=== PATIENT | female | born 1970 | race Caucasian/White ===

== ENCOUNTER 2024-09-29 14:00 | Outpatient (AMB) | payer OTHER, SELFPAY ==
--- NOTE | 2024-09-29 14:04 | MHC.PC.OV ---
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 Intake Note: establish care Is last menstrual period known: No Post menopausal: Yes Patient : No Allergies No Known Allergies Allergy (Verified 09/29/24 14:04) Tobacco use date assessed: 09/29/24 Dental Screening Dental Screen Date: 09/29/24 Did you have a dental visit in the last 12 months?: Yes Did you have a dental problem in the last 6 months where you did not have access to dental care?: No HPI HPI Comments History of Present Illness Details This is a 53-year-old female with a past medical history of eye globe prosthesis, depression, vulvodynia and lumbar spondylosis presenting to [facility]. She transferred from [facility] care. She endorses fatigue for about a year. It is progressively worse over the past year. She has been on fluvoxamine and gabapentin and chronically. The dose of fluvoxamine has been decreased to 100 mg daily though it is written for twice a day. She is not appreciate any difference. She does not think depression is making her fatigued but rather the opposite. She did start compounded semaglutide over the past year, and she lost weight. She is aware this medication can make fatigue worse. She endorses non restorative sleep. If she sleeps 8 or 12 hours she does not feel she is well rested. She also snores and wakes herself up snoring. She has not had a sleep study that was suggested in the past. Semaglutide is prescribed by a nurse practitioner at [facility]. Hypertension-taking amlodipine 5 mg daily. She was able to stop this medication in the past. Her blood pressure is 110/66. Vulvodynia is treated with gabapentin 600 mg daily. Right knee-has meniscal surgery at [facility] last year and had a gel injection in July for residual arthritis. She has had chronic issues with her lower back due to degenerative changes. She was seen at the arthritis treatment center. She had injections and physical therapy. Her last imaging was more than a year ago. She endorses chronic pain in the middle of the lower back. It does not radiate. There is no loss of bowel or bladder control or numbness or tingling in her lower extremities. The patient says she is up-to-date with routine screenings including mammogram, colonoscopy and routine gynecological exam. ROS: Constitutional: No unexplained weight loss, fever, chills or night sweats. Eyes: No vision changes, blurry vision, double vision, eye pain, eye redness, eye discharge. ENT: No hearing loss, chronic congestion, bloody noses, ear pain or sore throat. Respiratory: No shortness of breath, cough or sputum production. Cardiovascular: No chest pain, chest pressure or chest discomfort. No palpitations or pedal edema. Gastrointestinal: No anorexia, nausea, vomiting or diarrhea. No abdominal pain or blood in stool. Genitourinary: No dysuria, hematuria, urinary frequency. Neurologic: No headache, dizziness, syncope, unilateral weakness, ataxia, numbness or tingling in the extremities. Musculoskeletal: See HPI. Hematologic/Lymphatics: No bleeding or bruising. No painful lymph nodes. Skin: No rash or itching. Endocrine: No cold or heat intolerance. No polyuria or polydipsia. Psychiatric: No SI/HI. Physical exam: Constitutional: Alert, in no distress. Ear, Nose and Throat: Canals clear. TMs normal. Normal nasal mucosa. No nasal discharge. No oral lesions. Neck: Supple, Full range of motion. No lymphadenopathy. No palpable thyroid masses. Respiratory: Clear to auscultation. Cardiovascular: S1 S2 regular. No murmurs. Gastrointestinal: Abdomen soft, non-tender, non-distended. Normal bowel sounds. No palpable masses. Genitourinary: No costovertebral angle tenderness. Neurologic: No focal neurological deficits. Symmetric patellar reflexes. Moves all extremities spontaneously. Sensation intact bilaterally. Skin: No rashes Musculoskeletal: Midline spinal tenderness around L5-S1 level. Full range of motion but pain with flexion and extension. Negative straight leg raises bilaterally. Lower extremity strength 5/5 bilaterally. Extremities: Warm and well perfused. No clubbing, cyanosis or edema. 3+ peripheral pulses bilaterally. Psychiatric: Normal mood and affect [facility] Medical History (Updated 09/29/24 @ 14:45 by JOSEPH Fraser) Chronic low back pain Fatigue Non-restorative sleep Essential hypertension Vulvodynia Depression High blood pressure Surgical History (Updated 09/29/24 @ 14:12 by Umang Fleming CMA) H/O lateral meniscus repair of right knee Family History (Updated 09/29/24 @ 14:11 by Umang Fleming CMA) Mother FH: heart attack Father Lung cancer Sister FH: heart attack Social History (Updated 09/29/24 @ 14:12 by Umang Fleming CMA) Housing: House Patient Tobacco Use Status: Never used Tobacco e-Cigarette/Vaping Use: Never Used Second Hand Smoke Exposure: No Use of substances other than those prescribed or required for medical reasons: No Patient : No service: No Current occupational status: employed 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 1. Little interest or pleasure in doing things: not at all 2. Feeling down, depressed, or hopeless: not at all 3. Trouble falling or staying asleep, or sleeping too much: several days 4. Feeling tired or having little energy: nearly every day 5. Poor appetite or overeating: not at all 6. Feeling bad about yourself - or that you are a failure or have let yourself or your family down: not at all 7. Trouble concentrating on things, such as reading the newspaper or watching television: not at all 8. Moving or speaking so slowly that other people could have noticed. Or the opposite - being so fidgety or restless that you have been moving around a lot more than usual: not at all 9. Thoughts that you would be better off or of hurting yourself in some way: not at all Total score: 4 Depression Screening Interpretation: Negative Depression Screening Done: Yes 24941 - PHQ-9 Billing: Yes Source: Developed by Drs. Jesus Buckley, Zoila Conley, Michael Blake and colleagues, with an educational marta from [employer]. Thrive Questionnaire Date Thrive assessed: 09/29/24 I am a: Patient What is your living situation today?: I have a steady place to live Within the past 12 months, did the food you bought not last and you didn't have the money to get more?: Never true Within the past 12 months, did you worry whether your food would run out before you got money to buy more?: Never true Do you have trouble paying for medicines?: No Do you have trouble getting transportation to medical appointments?: No Do you have trouble paying your heating and electricity bill?: No Do you have trouble taking care of your child, family member or friend?: No Do you have trouble with day-to-day activities such as bathing, preparing meals, shopping, managing finances, etc.?: No Are you currently unemployed and looking for a job?: No Are you interested in more education?: No Please select the resources that you would like help with: None Currently or been in a relationship where the following occur: No concerns reported THRIVE Score: 0 AUDIT C Alcohol Use Questionnaire (AUDIT-C) 1. How often do you have a drink containing alcohol?: 2-3 times a week 2. How many drinks containing alcohol do you have on a typical day when you are drinking?: 3 or 4 3. How often do you have six or more drinks on one occasion?: Never Total Score: 4 FRED-7 AMB Questionnaire FRED-7 Date FRED - 7 assessed: 09/29/24 Feeling nervous, anxious, or on edge: 0 = Not at all Not being able to stop or control worryin = Not at all Worrying too much about different things: 0 = Not at all Trouble relaxin = Not at all Being so restless that it is hard to sit still: 0 = Not at all Becoming easily annoyed or irritable: 1 = Several days Feeling afraid as if something awful might happen: 0 = Not at all Total FRED-7 score (0-4 normal; 5-9 mild; 10-14 moderate; 15-21 severe): 1 Source: Developed by Drs. Jesus Buckley, Zoila Conley, Michael Blake and colleagues, with an educational marta from [employer]. Physical exam (Primary Care) Vital Signs: Last Vital Signs Temp 99.4 F 09/29/24 14:13 Pulse 96 09/29/24 14:13 Resp 14 09/29/24 14:13 BP 110/66 09/29/24 14:13 Pulse Ox 96 09/29/24 14:13 Oxygen Delivery Method Room Air 09/29/24 14:13 BMI result Body Mass Index 26.4 Tobacco/Smoking Status: Tobacco use Status Tobacco use date assessed 09/29/24 09/29/24 14:16 Patient Tobacco Use Status Never used Tobacco 09/29/24 14:16 e-Cigarette/Vaping Use Never Used 09/29/24 14:16 PHQ-9: PHQ-9 Score PHQ-9: Total score 4 09/29/24 14:16 Depression Screening Interpretation: Negative Thrive Assessment: Date of Thrive Assessment Date Thrive assessed 09/29/24 09/29/24 14:16 Currently or been in a relationship where the following occur: No concerns reported Office Procedures EKG Details: EKG shows normal sinus rhythm, nonishemic, no evidence of heart block, ventricular rate 93 beats per minute [id number], Complete Coding Level of Care Code Est Pt Level 5 (78154) Complex EM visit Add On G2211 Diagnoses Essential hypertension I10 Depression F32.A Vulvodynia N94.819 Non-restorative sleep G47.8 Fatigue R53.83 Chronic low back pain M54.50; G89.29 CPT Codes EKG - CPT: 49534-[id number], Complete ([id number]) Additional Codes PHQ-9 - 09253 - PHQ-9 Billing: Yes ([id number]) Time Spent (min) 55 Comment Direct patient care, chart review, completing documentation Assessment & Plan Assessment & Plan (1) Essential hypertension: Code(s): I10 - Essential (primary) hypertension Category: Medical Plan: Reduce amlodipine to 2.5 mg daily. Recommended low-sodium diet and avoidance of caffeine. (2) Depression: Code(s): F32.A - Depression, unspecified Category: Medical Plan: She will continue fluvoxamine 100 mg daily. We discussed potentially switching this to Cymbalta due to chronic pain. It is deferred for now. (3) Vulvodynia: Code(s): N94.819 - Vulvodynia, unspecified Category: Medical Plan: Continue gabapentin. (4) Non-restorative sleep: Code(s): G47.8 - Other sleep disorders Category: Medical (5) Fatigue: Code(s): R53.83 - Other fatigue Category: Medical Plan: We discussed that fatigue may be multifactorial. Several of the medication she takes have fatigue listed as a side effect. I recommended a trial of stopping or decreasing semaglutide. She will talk about this with the prescribing practitioner. We will decrease amlodipine to 2.5 mg daily since her blood pressure is very well-controlled. Non restorative sleep and snoring may be indicative of sleep apnea. Home sleep study ordered. Check labs for fatigue. See detailed list below. Consider MRI of the brain if this workup is nondiagnostic to evaluate for potential MS. (6) Chronic low back pain: Code(s): M54.50 - Low back pain, unspecified; G89.29 - Other chronic pain Category: Medical Plan: Defer increasing gabapentin as this medication can be more fatiguing. Check x-ray, MRI and refer back to physiatry. Plan Follow up in 6 weeks for fatigue and hypertension. Orders: Orders RT home sleep study Today F32.A - Depression, unspecified, G47.8 - Other sleep disorders, I10 - Essential (primary) hypertension UA w Microscopic Today F32.A - Depression, unspecified, G47.8 - Other sleep disorders, I10 - Essential (primary) hypertension, R39.9 - Unspecified symptoms and signs involving the genitourinary system TSH reflex Free T4 Today F32.A - Depression, unspecified, G47.8 - Other sleep disorders, I10 - Essential (primary) hypertension Cortisol Random Today F32.A - Depression, unspecified, G47.8 - Other sleep disorders, I10 - Essential (primary) hypertension Complete Blood Count Auto Diff Today F32.A - Depression, unspecified, G47.8 - Other sleep disorders, I10 - Essential (primary) hypertension MR lumbar spine wo con Today G89.29 - Other chronic pain, M54.50 - Low back pain, unspecified Urine Culture Today F32.A - Depression, unspecified, G47.8 - Other sleep disorders, I10 - Essential (primary) hypertension Vitamin B12 and Folate Today F32.A - Depression, unspecified, G47.8 - Other sleep disorders, I10 - Essential (primary) hypertension Magnesium Today F32.A - Depression, unspecified, G47.8 - Other sleep disorders, I10 - Essential (primary) hypertension Lyme IgG/IgM w/reflex to WB Today F32.A - Depression, unspecified, G47.8 - Other sleep disorders, I10 - Essential (primary) hypertension Vitamin D 1,25 dihydroxy Today F32.A - Depression, unspecified, G47.8 - Other sleep disorders, I10 - Essential (primary) hypertension Comprehensive Met. Panel Today F32.A - Depression, unspecified, G47.8 - Other sleep disorders, I10 - Essential (primary) hypertension Zinc Today G47.8 - Other sleep disorders AMB EKG-In Office Today R53.83 - Other fatigue XR lumbar spine 2-3V Today G89.29 - Other chronic pain, M54.50 - Low back pain, unspecified Erythrocyte Sedimentation Rate Today R53.83 - Other fatigue IRON PROFILE Today R53.83 - Other fatigue Referrals Physiatry Referral G89.29 - Other chronic pain, M54.50 - Low back pain, unspecified Medications: New fluvoxamine 100 mg PO BID 180 tabs 1RF amlodipine 2.5 mg PO DAILY 90 tabs 1RF
[2024-09-29 14:13] VITALS: BP 110/66; PULSE 96; RESP 14; TEMP 37.4; O2SAT 96; BMI 26.4
== END 2024-09-29 15:05 | disposition home or self-care (01) ==
PROVIDERS: PCP Physician Assistant Medical; Visit Provider Physician Assistant Medical
DX: I10 Essential (primary) hypertension (principal); F32.A Depression, unspecified; N94.819 Vulvodynia, unspecified; G47.8 Other sleep disorders; R53.83 Other fatigue; M54.50 Low back pain, unspecified; G89.29 Other chronic pain

== ENCOUNTER → 2024-09-29 14:00 | Outpatient (BNVA) | payer OTHER, SELFPAY | PROVIDERS: PCP Physician Assistant Medical; Visit Provider Physician Assistant Medical | DX: I10 Essential (primary) hypertension (principal); F32.A Depression, unspecified; N94.819 Vulvodynia, unspecified; G47.8 Other sleep disorders; R53.83 Other fatigue; G89.29 Other chronic pain; M54.50 Low back pain, unspecified; Z79.899 Other long term (current) drug therapy | CPT/HCPCS: 93005; 96127 ==

== ENCOUNTER 2024-09-29 15:12 | Outpatient (REF) | payer OTHER, SELFPAY ==
[2024-09-29 17:50] LABS: MANUAL DIFF FLAG NO
[2024-09-29 17:55] LABS: Basophils Percent Auto 0.8 % (0-2); Eosinophils Absolute Auto 0.1 X10*3/uL (0.0-0.4); Eosinophils Percent Auto 2.1 % (0-4); Imm Gran Abs Auto 0.01 X10*3/uL (0.00-0.03); Imm Gran Pct Auto 0.3 % (0.0-0.4); Lymphocytes Percent Auto 25.9 % (20-40); Mean Corpuscular Hemoglobin 31.6 pg (27.0-33.0); Mean Corpuscular Volume 90.3 fL (80.0-98.0); Mean Platelet Volume 8.3 fL (9.4-12.3); Monocytes Absolute Auto 0.5 X10*3/uL (0.1-1.2); Monocytes Percent Auto 13.4 % (2-11); Neutrophils Absolute Auto 2.2 x10*3/uL (2.0-8.3); Neutrophils Percent Auto 57.5 % (45-73); Platelet Count 251 X10*3/uL (160-400); Red Blood Count 4.43 X10*6/uL (4.20-5.50); Red Cell Distribution Width 12.4 % (11.0-16.0); White Blood Count 3.7 X10*3/uL (4.8-10.8)
[2024-09-29 18:07] LABS: Appearance Urine Cloudy; Color Urine Yellow; Glucose Urine UA Negative (Negative); Leukocyte Esterase Urine Negative (Negative); Nitrite Urine Negative (Negative); PH 5.5 (5.0-9.0); Specific Gravity - Urine >= 1.030 (1.005-1.025); UMIC TRIGGER UA YES; Urine Blood Trace (Negative); Urine Ketones Trace mg/dL (Negative); Urine Protein Trace mg/dL (Neg-Trace)
[2024-09-29 18:14] LABS: Alanine Aminotransferase 14 U/L (0-31); Albumin Level 4.4 g/dL (3.5-5.0); Alkaline Phosphatase 73 U/L (39-117); Anion Gap 10 (12-20); Aspartate Amino Transferase 22 U/L (5-31); Bilirubin Total 0.2 mg/dL (0.0-1.0); Blood Urea Nitrogen 22 mg/dL (9-16); Calcium 9.6 mg/dL (8.4-10.2); Carbon Dioxide 24 mmol/L (22-29); Chloride 108 mmol/L (96-108); Estimated Glomerular Filt Rate > 60; Glucose Random 98 mg/dL (60-115); Iron 19 mcg/dL (30-160); Magnesium 2.1 mg/dL (1.6-2.6); Percent Iron Saturation 7 % (15-50); Potassium 4.3 mmol/L (3.3-5.1); Sodium 138 mmol/L (135-145); Total Iron Binding Capacity 257 mcg/dL (228-428); Total Protein 7.8 g/dL (6.5-8.0); Unsaturated Iron Binding 238 ug/dL
[2024-09-29 18:24] LABS: Cortisol Random 7.8 ug/dL
[2024-09-29 18:25] LABS: Bacteria Urine None Seen (None Seen); Hyaline Casts Urine 0-2 /LPF (0-2); Squamous Epithelial Cell Urine 0-2 /HPF (0-2); WBC Urine 0-5 /HPF (0-5)
[2024-09-29 18:30] LABS: TSH reflex Free T4 0.57 uIU/mL (0.32-4.0)
[2024-09-29 18:38] LABS: Vitamin B12 1968 pg/mL (200-900)
[2024-09-29 18:41] LABS: Erythrocyte Sedimentation Rate 23 MM/HR (0-20)
[2024-09-30 11:13] LABS: Lyme Abs Screen <0.90 index
[2024-10-02 12:59] LABS: VITAMIN D (1,25 OH) D3 100 pg/mL; Vit D (1,25-Dihydroxy) Total 100 pg/mL (18-72); Vitamin D (1,25 OH) D2 <8 pg/mL
== END 2024-09-29 15:13 | disposition home or self-care (01) ==
LOC: HO.WFDLDS 15:12
PROVIDERS: Visit Provider Physician Assistant Medical
DX: G47.8 Other sleep disorders (principal); I10 Essential (primary) hypertension; F32.A Depression, unspecified; R39.9 Unspecified symptoms and signs involving the genitourinary system; R53.83 Other fatigue
CPT/HCPCS: 36415; 80053; 81001; 82533; 82607; 82652; 82746; 83540; 83735; 84443; 85025; 85652; 86617; 86618; 87086

== ENCOUNTER 2024-11-07 14:58 | Outpatient (AMB) | payer OTHER, SELFPAY ==
--- NOTE | 2024-11-07 15:20 | MHC.PC.OV ---
Vital Signs 11/07/24 15:22 Height 5 ft 4 in Weight 156 lb 4 oz BMI 26.8 BP 122/86 Blood Pressure Location Rt brachial Position Sitting Respiration 12 Pulse 91 Pulse Source Pulse Oximeter Intake Visit Reasons: F/U on meds / bloodwork Intake Note: Follow up labs Field Adjuster Required: No Allergies No Known Allergies Allergy (Verified 11/07/24 15:20) Tobacco use date assessed: 11/07/24 Dental Screening Dental Screen Date: 09/29/24 HPI HPI Comments History of Present Illness Details This is a 53-year-old female with a past medical history of eye globe prosthesis, depression, vulvodynia , fatigue and lumbar spondylosis presenting for follow up. She saw me on 09/29/2024 to establish care here. She endorsed fatigue for about a year that was progressively worsening over the past 12 months. She reported being on fluvoxamine and gabapentin chronically. Her dose of fluvoxamine has been decreased to 100 mg a day. She did not notice a difference in her fatigue after decreasing the medication. She did not think depression was making her fatigued, but rather she thought the opposite. We discussed semaglutide that she has been taking over the past year which has resulted in desired weight loss. She also endorsed non restorative sleep. She says if she sleeps 8 or 12 hours she does not feel well rested. She also snores and wakes herself up. She had not had a sleep study. Her semaglutide is prescribed by a nurse practitioner at [facility]. I ordered a sleep study which is scheduled 11/28/2024. Initial lab evaluation demonstrated mild leukopenia with a white blood cell count of 3.7, lymphocyte count of 1.0, mildly elevated sed rate at 23 and low iron but no anemia. Renal function and hepatic function were normal. Her B12 level was high as well as her vitamin-D level. TSH, cortisol and Lyme screening were negative/normal. Her urinalysis was positive for 3-5 red blood cells per high-power field. She reported being on a B12 supplement from the provider who prescribed semaglutide. She was instructed to increase iron rich foods in her diet and decrease B12 to every other day. She was referred to Urology, and retroperitoneal ultrasound was ordered since her urine culture was negative for infection. She denies UTI symptoms. Hypertension-taking amlodipine 2.5 mg daily. Her diastolic BP is mildly elevated today. Vulvodynia is treated with gabapentin 600 mg. She had an annual gynecology visit recently, but she did not see her regular provider, and they asked her to request the medication from this office for future refills. I told her that this will not be an issue. Not addressed at this visit: Right knee-has meniscal surgery at [facility] last year and had a gel injection in July for residual arthritis. She has had chronic issues with her lower back due to degenerative changes. She was seen at the arthritis treatment center. She had injections and physical therapy. Her last imaging was more than a year ago. She endorses chronic pain in the middle of the lower back. It does not radiate. There is no loss of bowel or bladder control or numbness or tingling in her lower extremities. The patient says she is up-to-date with routine screenings including mammogram, colonoscopy and routine gynecological exam. ROS: Constitutional: No unexplained weight loss, fever, chills or night sweats. Eyes: No vision changes, blurry vision, double vision, eye pain, eye redness, eye discharge. ENT: No hearing loss, chronic congestion, bloody noses, ear pain or sore throat. Respiratory: No shortness of breath, cough or sputum production. Cardiovascular: No chest pain, chest pressure or chest discomfort. No palpitations or pedal edema. Gastrointestinal: No anorexia, nausea, vomiting or diarrhea. No abdominal pain or blood in stool. Genitourinary: No dysuria, hematuria, urinary frequency. Neurologic: No headache, dizziness, syncope, unilateral weakness, ataxia, numbness or tingling in the extremities. Musculoskeletal: See HPI. Hematologic/Lymphatics: No bleeding or bruising. No painful lymph nodes. Skin: No rash or itching. Endocrine: No cold or heat intolerance. No polyuria or polydipsia. Psychiatric: No SI/HI. Physical exam: Constitutional: Alert, in no distress. Ear, Nose and Throat: Canals clear. TMs normal. Normal nasal mucosa. No nasal discharge. No oral lesions. Neck: Supple, Full range of motion. No lymphadenopathy. No palpable thyroid masses. Respiratory: Clear to auscultation. Cardiovascular: S1 S2 regular. No murmurs. Gastrointestinal: Abdomen soft, non-tender, non-distended. Normal bowel sounds. No palpable masses. Genitourinary: No costovertebral angle tenderness. Neurologic: No focal neurological deficits. Symmetric patellar reflexes. Moves all extremities spontaneously. Sensation intact bilaterally. Skin: No rashes Musculoskeletal: Midline spinal tenderness around L5-S1 level. Full range of motion but pain with flexion and extension. Negative straight leg raises bilaterally. Lower extremity strength 5/5 bilaterally. Extremities: Warm and well perfused. No clubbing, cyanosis or edema. 3+ peripheral pulses bilaterally. 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 Sleep study schedule 11/28/24 [facility] Medical History (Updated 10/13/24 @ 13:25 by JOSEPH Fraser) Microhematuria Chronic low back pain Fatigue Non-restorative sleep Essential hypertension Vulvodynia Depression High blood pressure Surgical History H/O lateral meniscus repair of right knee Family History Mother FH: heart attack Father Lung cancer Sister FH: heart attack Social History (Updated 11/07/24 @ 16:34 by Norah Euceda CMA) Housing: House Alcohol intake: current Patient Tobacco Use Status: Never used Tobacco e-Cigarette/Vaping Use: Never Used Second Hand Smoke Exposure: No Use of substances other than those prescribed or required for medical reasons: No service: No Current occupational status: employed 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 Current occupational exposures/hazards: No Cognitive needs: No Hearing needs: No Vision needs: No Questionnaire Thrive Questionnaire Date Thrive assessed: 09/25/24 I am a: Patient What is your living situation today?: I have a steady place to live Within the past 12 months, did the food you bought not last and you didn't have the money to get more?: Never true Within the past 12 months, did you worry whether your food would run out before you got money to buy more?: Never true Do you have trouble paying for medicines?: No Do you have trouble getting transportation to medical appointments?: No Do you have trouble paying your heating and electricity bill?: No Do you have trouble taking care of your child, family member or friend?: No Do you have trouble with day-to-day activities such as bathing, preparing meals, shopping, managing finances, etc.?: No Are you currently unemployed and looking for a job?: No Are you interested in more education?: No Please select the resources that you would like help with: None Currently or been in a relationship where the following occur: No concerns reported THRIVE Score: 0 FRED-7 AMB Questionnaire FRED-7 Date FRED - 7 assessed: 09/29/24 Source: Developed by Drs. Jesus Buckley, Zoila Conley, Michael Blake and colleagues, with an educational marta from [employer]. Physical exam (Primary Care) Vital Signs: Last Vital Signs Pulse 91 11/07/24 15:22 Resp 12 11/07/24 15:22 BP 122/86 11/07/24 15:22 BMI result Body Mass Index 26.8 Tobacco/Smoking Status: Tobacco use Status Tobacco use date assessed 11/07/24 11/07/24 15:26 Patient Tobacco Use Status Never used Tobacco 11/07/24 15:26 e-Cigarette/Vaping Use Never Used 11/07/24 15:26 Thrive Assessment: Date of Thrive Assessment Date Thrive assessed 09/25/24 11/07/24 15:26 Currently or been in a relationship where the following occur: No concerns reported Coding Level of Care Code Est Pt Level 4 (34574) Complex EM visit Add On G2211 Diagnoses Essential hypertension I10 Depression F32.A Vulvodynia N94.819 Non-restorative sleep G47.8 Fatigue R53.83 Assessment & Plan Assessment & Plan (1) Essential hypertension: Code(s): I10 - Essential (primary) hypertension Category: Medical (2) Depression: Code(s): F32.A - Depression, unspecified Category: Medical (3) Vulvodynia: Code(s): N94.819 - Vulvodynia, unspecified Category: Medical (4) Non-restorative sleep: Code(s): G47.8 - Other sleep disorders Category: Medical (5) Fatigue: Code(s): R53.83 - Other fatigue Category: Medical Plan: We discussed that fatigue may be multifactorial. Several of the medication she takes have fatigue listed as a side effect. I recommended a trial of stopping or decreasing semaglutide. She will talk about this with the prescribing practitioner. She is going to repeat her CBC and sed rate and we will check ferritin, iron profile, B12. The zinc level could not be drawn at our lab so she will have this done at [facility]. She will also recheck her vitamin-D level. She will proceed with urology consult and retroperitoneal ultrasound for evaluation of microhematuria. She will proceed with the home sleep study as I do have suspicion she may have untreated sleep apnea. She will continue amlodipine for hypertension. She will monitor and call if her diastolic BP readings at home were greater than 80. She will continue her current dose of fluvoxamine. We discussed transitioning to Cymbalta for chronic pain, but this is deferred for now. Continue gabapentin for vulvodynia. Plan Follow up in 3-4 months for a physical exam and sooner based on results as needed.
[2024-11-07 15:22] VITALS: BP 122/86; PULSE 91; RESP 12; BMI 26.8
--- OUTSIDE RECORDS SUMMARY | 2024-11-07 17:49 | XMS_ITS | Continuity of Care Document ---
[facility] Organization [facility] Address [address], [address] [place] [address]- Care Team Providers Care Cupola Melter Name Role Phone Eden Francois Primary Care Physician Encounter [facility] R [id number] Date(s): 10/12/24 - 10/19/24 [facility] [address], [address] [place], [place] [address] Attending Physician: Nicole Knight Referring Physician: Eden Francois Encounter Type: Office Visit Allergies, Adverse Reactions, Alerts No Known Medication Allergies Immunizations Given and Recorded Vaccine Date Status Refusal Reason influenza virus vaccine, inactivated 08/06/23 Benito rded influenza virus vaccine, inactivated 07/24/22 Benito rded influenza virus vaccine, inactivated 10/18/20 Benito rded SARS-CoV-2(COVID-19)mRNA-LNP vac([id number]) 07/17/23 Recorded zoster vaccine, inactivated 11/29/22 Recorded zoster vaccine, inactivated 06/21/22 Recorded [id number] 12y+ bivalent booster vax 06/07/22 Recorded SARS-CoV-2 (COVID-19) mRNA-1273 vaccine 08/24/21 R ecorded SARS-CoV-2 (COVID-19) mRNA BNT-162b2 vac 09/20/20 Recorded SARS-CoV-2 (COVID-19) mRNA BNT-162b2 vac 08/28/20 Recorded tetanus-diphtheria toxoids (Td) 05/28/07 Recorded hepatitis B pediatric vaccine 05/28/07 Recorded Medications amLODIPine 5 mg oral tablet 1 tablet, By Mouth, Daily, # 90 tablet, 1 Refills, Maintenance, 03/31/24 1:04:00 PM EDT, [facility] #[id number], 168, cm, 01/28/24 9:05:00 EDT, Height, 78.2, kg, 01/28/24 9:05:00 EDT, Dry Weight Start Date: 03/31/24 Status: Ordered Quantity: 90.0 Unit: tablet Repeat number: 2 fluvoxaMINE 100 mg oral tablet See Instructions, TAKE 2 TABLETS BY MOUTH IN THE MORNING AND 1 TABLET BY MOUTH IN THE EVENING., # 90 tablet, 0 Refills, Maintenance, 05/19/24 12:54:00 PM EDT, [facility] #[id number], 168, cm, 01/28/24 9:05:00 EDT, Height, 78.2, kg, 01/28/24 9:05:00 EDT, Dry Weight Start Date: 05/19/24 Status: Ordered Quantity: 90.0 Unit: tablet Repeat number: 1 gabapentin 600 mg oral tablet See Instructions, 1 tablet by mouth in the morning, 2 tablet by mouths in the evening, # 270 tablet, 3 Refills, 08/03/23 11:32:00 AM EST, [facility] #[id number], 168, cm, 03/02/23 14:04:00 EDT, Height Start Date: 08/03/23 Status: Ordered Quantity: 270.0 Unit: tablet Repeat number: 4 lidocaine 5% topical ointment See Instructions, APPLY TO AFFECTED AREA 3 TIMES A DAY NEEDED FOR MILD PAIN, # 35.44 Gm, 5 Refills, Maintenance, 10/12/24 9:51:00 AM EST, [facility] #[id number], 14, APPLY TO AFFECTED AREA 3 TIMES A DAYAS NEEDED FOR MILD PAIN, 168, cm, 10/12/24 9:32:00 EST, Height, 68.1, kg, 10/12/24 9:32:00 EST, DryWeight Start Date: 10/12/24 Status: Ordered Quantity: 35.44 Unit: g Repeat number: 6 Problem List Condition Confirmation Course Effective Dates Status Health St atus Informant Benign hypertension Confirmed Active Cough Confirmed Active Depression Confirmed Active Eye globe prosthesis Confirmed Active Lumbar spondylosis Confirmed Active Overweight Confirmed Active Right knee pain Confirmed Active Vulvodynia Confirmed Active Vital Signs Most recent to oldest [Reference Range]: 1 Height 168 cm (10/12/24 9:32 AM) Weight 68.1 kg (10/12/24 9:32 AM) Pulse Rate [55-90 bpm] 87 bpm (10/12/24 9:32 AM) Body Mass Index [18.5-24.99 kg/m2] 24.13 kg/m2 (10/12/24 9:32 AM) Blood Pressure [90-138/55-84 mm Hg] 142/ 94mm Hg *H* (10/12/24 9:32 AM) Blood pressure sites Arm, right (10/12/24 9:32 AM) Dry Weight 68.1 kg (10/12/24 9:32 AM) Weight Obtained Via Standing scale (10/12/24 9:32 AM) Dry Weight Obtained Via Standing scale (10/12/24 9:32 AM) Social History Social History Type Response Smoking Status Never smoker; Tobacc o user in household: No entered on: 03/27/17 Sex Sex Representation Female (finding) Patient Care team information Care Team Personnel Name: Eden Francois Position: [facility] Associate Professional Member Role: PCP Address: [address] [place] [address] [address] [place] [address]- Telecom: Name: Kishan Mead MD Position: [facility] ASBESTOS SIDING MECHANIC MD Member Role: Lifetime Consulting Physician Address: [address] [place] [address] [address] [place], [place] [address] Telecom: Care Team Related Persons Name: FILEMON BACA Name: ALFONSO MCCOY Name: MONICA MCCOY Insurance Providers Guarantor name: DEACON PHUONG Health Plan Information #: 1 Payer: [employer] Member Number: [id number] Policy Number: NA Group Number: [id number] Health Plan Information #: 2 Payer: [employer] Member Number: [id number] Policy Number: NA Group Number: [id number]
--- OUTSIDE RECORDS SUMMARY | 2024-11-07 17:49 | XMS_ITS | Continuity of Care Document ---
Author Organization [facility] Address [address], [address] [place] [address]- Care Team Providers Care Wood Handler Name Role Phone Eden Francois Primary Care Physician [phone] Encounter [facility] Date(s): 10/07/24 - 11/06/24 [facility] [address], [address] [place], [place] [address] Encounter Type: Triage Allergies, Adverse Reactions, Alerts No Known Medication Allergies Immunizations Given and Recorded Vaccine Date Status Refusal Reason influenza virus vaccine, inactivated 08/06/23 Benito rded influenza virus vaccine, inactivated 07/24/22 Benito rded influenza virus vaccine, inactivated 10/18/20 Benito rded SARS-CoV-2(COVID-19)mRNA-LNP vac([id number]) 07/17/23 Recorded zoster vaccine, inactivated 11/29/22 Recorded zoster vaccine, inactivated 06/21/22 Recorded [id number] 12y+ bivalent booster vax 06/07/22 Recorded SARS-CoV-2 (COVID-19) mRNA-1273 vaccine 08/24/21 R ecorded SARS-CoV-2 (COVID-19) mRNA BNT-162b2 vac 09/20/20 Recorded SARS-CoV-2 (COVID-19) mRNA BNT-162b2 vac 08/28/20 Recorded tetanus-diphtheria toxoids (Td) 05/28/07 Recorded hepatitis B pediatric vaccine 05/28/07 Recorded Medications amLODIPine 5 mg oral tablet 1 tablet, By Mouth, Daily, # 90 tablet, 1 Refills, Maintenance, 03/31/24 1:04:00 PM EDT, [facility] #[id number], 168, cm, 01/28/24 9:05:00 EDT, Height, 78.2, kg, 01/28/24 9:05:00 EDT, Dry Weight Start Date: 03/31/24 Status: Ordered Quantity: 90.0 Unit: tablet Repeat number: 2 fluvoxaMINE 100 mg oral tablet See Instructions, TAKE 2 TABLETS BY MOUTH IN THE MORNING AND 1 TABLET BY MOUTH IN THE EVENING., # 90 tablet, 0 Refills, Maintenance, 05/19/24 12:54:00 PM EDT, [facility] #[id number], 168, cm, 01/28/24 9:05:00 EDT, Height, 78.2, kg, 01/28/24 9:05:00 EDT, Dry Weight Start Date: 05/19/24 Status: Ordered Quantity: 90.0 Unit: tablet Repeat number: 1 gabapentin 600 mg oral tablet See Instructions, 1 tablet by mouth in the morning, 2 tablet by mouths in the evening, # 270 tablet, 3 Refills, 08/03/23 11:32:00 AM EST, [facility] #[id number], 168, cm, 03/02/23 14:04:00 EDT, Height Start Date: 08/03/23 Status: Ordered Quantity: 270.0 Unit: tablet Repeat number: 4 lidocaine 5% topical ointment See Instructions, APPLY TO AFFECTED AREA 3 TIMES A DAY NEEDED FOR MILD PAIN, # 35.44 Gm, 5 Refills, Maintenance, 10/12/24 9:51:00 AM EST, [facility] #[id number], 14, APPLY TO AFFECTED AREA 3 [...] knee pain Confirmed Active Vulvodynia Confirmed Active Social History Social History Type Response Smoking Status Never smoker; Tobacc o user in household: No entered on: 03/27/17 Sex Sex Representation Female (finding) Patient Care team information Care Team Personnel Name: Eden Francois Position: [facility] Associate Professional Member Role: PCP Address: [address] [place] [address]- Telecom: Name: Kishan Mead MD Position: [facility] TRIMMING ASSEMBLER MD Member Role: Lifetime Consulting Physician Address: [address] [place] [address] [address] [place] [address]- Telecom: Care Team Related Persons Name: FILEMON BACA Name: ALFONSO MCCOY Name: MONICA MCCOY Insurance Providers Guarantor name: DEACON BACA Health Plan Information #: 1 Payer: [facility] SELECT HMO Member Number: NA Policy Number: NA Group Number: NA
== END 2024-11-07 15:46 | disposition home or self-care (01) ==
PROVIDERS: PCP Physician Assistant Medical; Visit Provider Physician Assistant Medical
DX: I10 Essential (primary) hypertension (principal); F32.A Depression, unspecified; N94.819 Vulvodynia, unspecified; G47.8 Other sleep disorders; R53.83 Other fatigue

== ENCOUNTER → 2024-11-07 14:58 | Outpatient (BNVA) | payer OTHER, SELFPAY | PROVIDERS: PCP Physician Assistant Medical; Visit Provider Physician Assistant Medical ==

== ENCOUNTER 2024-11-15 13:34 | Outpatient (REF) | payer OTHER, SELFPAY ==
--- NOTE | ~2024-11-15 | US_ITS ---
EXAMINATION: US RETROPERITONEUM HISTORY: R31.29 - Other microscopic hematuria TECHNIQUE: Real-time grayscale ultrasound imaging of the kidneys was performed and images were reviewed. COMPARISON: There are no prior studies for comparison. FINDINGS: Right kidney: The right kidney measures 11.5 x 4.1 x 5.8 cm. Renal parenchymal echotexture and thickness are normal. There is a 5 x 2 x 4 mm upper pole cyst. There is mild hydronephrosis. No calculi are identified. Left Kidney: The left kidney measures 10.6 x 5.1 x 4.6 cm. Renal parenchymal echotexture and thickness are normal. There are no masses. There is no hydronephrosis or renal calculi. The urinary bladder is unremarkable. Bilateral ureteral jets are identified. Before voiding, the urinary bladder measured 6.5 x 6.1 x 8.0 cm, for an estimated volume of 166 mL. After voiding, the urinary bladder measured 3.3 x 1.1 x 4.1 cm, for an estimated volume of 7.9 mL. US/US retroperitoneal comp IMPRESSION: 1. Mild right hydronephrosis. 2. Post void bladder residual of 7.9 mL. Electronically signed by: Jesus Garber MD 11/15/2024 03:49 PM EDT
--- OUTSIDE RECORDS SUMMARY | 2024-11-15 16:30 | XMS_ITS | Continuity of Care Document ---
Author Organization [facility] Address [address] [place] [address], [address] [place] [address]- Care Team Providers Care Wheel Mill Operator Name Role Phone Eden Francois Primary Care Physician Encounter [facility] Date(s): 10/12/24 - 11/11/24 [facility] [address] [place] [address], [address] [place] [address] Attending Physician: AdmNorman wren Admitting Physician: AdmtrNorman Referring Physician: Admtr ArMarlen Encounter Type: Triage Allergies, Adverse Reactions, Alerts No Known Medication Allergies Immunizations Given and Recorded Vaccine Date Status Refusal Reason influenza virus vaccine, inactivated 08/06/23 Benito rded influenza virus vaccine, inactivated 07/24/22 Benito rded influenza virus vaccine, inactivated 10/18/20 Benito rded SARS-CoV-2(COVID-19)mRNA-LNP vac([id number]) 07/17/23 Recorded zoster vaccine, inactivated 11/29/22 Recorded zoster vaccine, inactivated 06/21/22 Recorded [id number] 12y+ bivalent booster vax 06/07/22 Recorded SARS-CoV-2 (COVID-19) mRNA-1273 vaccine 08/24/21 R ecorded SARS-CoV-2 (COVID-19) mRNA BNT-162b2 vac 09/20/20 Recorded SARS-CoV-2 (COVID-19) mRNA BNT-162b2 vac 08/28/20 Recorded tetanus-diphtheria toxoids (Td) 05/28/07 Recorded hepatitis B pediatric vaccine 05/28/07 Recorded Medications amLODIPine 5 mg oral tablet 1 tablet, By Mouth, Daily, # 90 tablet, 1 Refills, Maintenance, 03/31/24 1:04:00 PM EDT, [facility]/pharmacy #[id number], 168, cm, 01/28/24 9:05:00 EDT, Height, 78.2, kg, 01/28/24 9:05:00 EDT, Dry Weight Start Date: 03/31/24 Status: Ordered Quantity: 90.0 Unit: tablet Repeat number: 2 fluvoxaMINE 100 mg oral tablet See Instructions, TAKE 2 TABLETS BY MOUTH IN THE MORNING AND 1 TABLET BY MOUTH IN THE EVENING., # 90 tablet, 0 Refills, Maintenance, 05/19/24 12:54:00 PM EDT, [facility]/pharmacy #[id number], 168, cm, 01/28/24 9:05:00 EDT, Height, 78.2, kg, 01/28/24 9:05:00 EDT, Dry Weight Start Date: 05/19/24 Status: Ordered Quantity: 90.0 Unit: tablet Repeat number: 1 gabapentin 600 mg oral tablet See Instructions, 1 tablet by mouth in the morning, 2 tablet by mouths in the evening, # 270 tablet, 3 Refills, 08/03/23 11:32:00 AM EST, [facility]/pharmacy #[id number], 168, cm, 03/02/23 14:04:00 EDT, Height Start Date: 08/03/23 Status: Ordered Quantity: 270.0 Unit: tablet Repeat number: 4 lidocaine 5% topical ointment See Instructions, APPLY TO AFFECTED AREA 3 TIMES A DAY NEEDED FOR MILD PAIN, # 35.44 Gm, 5 Refills, Maintenance, 10/12/24 9:51:00 AM EST, [facility]/pharmacy #[id number], 14, APPLY TO AFFECTED AREA 3 [...] Care Team Personnel Name: Eden Francois Position: [facility] Associate Professional Member Role: PCP Address: [address] [place] [address] [address] [place] [address] [place] Telecom: Name: Kishan Mead MD Position: [facility] OIL WELL CABLE TOOL OPERATOR MD Member Role: Lifetime Consulting Physician Address: [address] [place] [address] [address] [place] [address]- [place] Telecom: Care Team Related Persons Name: FILEMON BACA Name: ALFONSO MCCOY Name: MONICA MCCOY Insurance Providers Guarantor name: DEACON BACA Health Plan Information #: 1 Payer: [employer] Member Number: NA Policy Number: NA Group Number: NA
== END 2024-11-15 13:35 | disposition home or self-care (01) ==
LOC: HO.US 13:34
PROVIDERS: PCP Physician Assistant Medical; Visit Provider Physician Assistant Medical
DX: R31.29 Other microscopic hematuria (principal)
CPT/HCPCS: 76770

== ENCOUNTER → 2024-11-15 13:36 | Outpatient (BNV) | payer OTHER, SELFPAY | PROVIDERS: PCP Physician Assistant Medical; Visit Provider Radiology Diagnostic Radiology | DX: R31.29 Other microscopic hematuria (principal); N13.39 Other hydronephrosis | CPT/HCPCS: 76770 ==

== ENCOUNTER 2024-12-14 14:36 | Outpatient (AMB) | payer OTHER, SELFPAY ==
--- NOTE | 2024-12-14 14:40 | MHC.OFFVIS ---
Intake Visit Reasons: microscopic hematuria Intake Note: New patient presents today for initial visit for microscopic hematuria Urology Medication:none Blood Thinner:none Antibiotic Allergies:none Allergies No Known Allergies Allergy (Verified 12/14/24 15:03) Medication List - Last Reconciled 12/14/24 by TYLER Brady- amlodipine 2.5 mg PO DAILY fluvoxamine 100 mg PO BID gabapentin 600 mg PO DAILY semaglutide (weight loss) 0.5 mg subcut QWEEK HPI Comments Details: Jarad is a very pleasant 54-year-old female patient of Dr. Underwood. She has a past medical history of chronic low-back pain, fatigue, hypertension, vulvodynia, depression, and hypertension. She presents to the office today as a new patient for microscopic hematuria. In discussion with the patient today she reports having followed up with her PCP at which time UA noted microscopic hematuria and recommendations was made for urology referral for further assessment evaluation. In office urinalysis results today reviewed with the patient no microscopic hematuria noted. When asked she denies any previous history of workplace chemical exposure and or nicotine dependence. She does report previously following up with the uro hydrographic surveyor a few years ago for an episode of urinary retention however this episode was a solitary event. She currently denies any bothersome urinary issues or concerns. She denies urinary urgency, urinary frequency, incontinence, nocturia, gross/visible hematuria, dysuria, foul smelling urine, changes to urinary stream, flank pain, fever, and or chills. She is happy with her current voiding parameters. In review of patient's chart it appears a retroperitoneal ultrasound was ordered for further assessment evaluation. These results were communicated and reviewed with the patient today 11/29 right kidney with mild hydronephrosis and 5 mm upper pole cysts. Left kidney with no masses, hydronephrosis, and or renal calculi. In discussion with the patient today she reports upcoming CT urogram appointment for 01/26. We discussed potential causes of microscopic hematuria as well as hydronephrosis. I discussed reasons for blood in the urine may include but are not limited to kidney stones, cancer in the urinary tract, kidney stone disease or inflammatory conditions of the urinary tract. She otherwise offers no other issues or concerns at this time. Plan The patient will continue with the scheduled CT scan with contrast to evaluate possible causes of hydronephrosis further. Findings from this scan will guide whether more specialized testing, such as a nuclear renal scan, is needed to determine structural or functional concerns. The patient's kidneys will undergo blood analysis ahead of the contrast study to ensure they can process it safely, as dictated by protocol. Patient was informed and verbally consented to the use of an ambient scribe for clinic note documentation during this visit. Discussion Notes I have reviewed with the patient that the current primary concern is the earlier identified mild hydronephrosis, which requires detailed evaluation through a CAT scan with contrast. We discussed that this diagnostic will offer insight into renal structure and function more accurately than an ultrasound. I explained that, should hydronephrosis persist, further investigation using a nuclear renal scan might be necessary. I emphasized the importance of the current plan in ruling out other serious causes of her symptoms and encouraged adherence to her appointments for timely management. 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 Current occupational exposures/hazards: No Cognitive needs: No Hearing needs: No Vision needs: No Review of Systems Const All systems reviewed & are unremarkable except as noted in HPI and below Physical Exam Const General: cooperative, healthy appearing, comfortable, no acute distress, well developed, alert and awake Orientation/consciousness: patient oriented x3 Limitations: no limitations HEENT Head: Yes normal to inspection, Yes normocephalic and Yes atraumatic Ears: hearing grossly normal bilaterally Eyes General: appearance normal, both eyes and all related structures Neck Neck: Yes normal visual inspection and Yes trachea midline Chest Chest palpation & inspection: normal inspection of the chest Resp Effort & Inspection: normal respiratory effort and able to speak in complete sentences Cardio Rate: regular rate GI Inspection: Yes normal to inspection General: Yes no CVA tenderness Back/Spine/Pelvis Back: no CVA tenderness Skin General skin exam: no rashes or lesions noted Neuro General: patient oriented x3 Extrem General: Yes normal to inspection Psych Appearance: grossly normal and well kempt Mental Status: mental status grossly normal Speech and movement: Normal speech and movement present and Clear speech present Affect: normal affect Attitude: cooperative Thought process: Normal thought process present Thought content: Normal thought content present Insight: Fair insight present (Psych) Judgement: Fair judgement present (Psych) Results Reviewed Results Reviewed: Date of Service: 11/15/24 Procedure(s): US retroperitoneal comp FINDINGS: Right kidney: The right kidney measures 11.5 x 4.1 x 5.8 cm. Renal parenchymal echotexture and thickness are normal. There is a 5 x 2 x 4 mm upper pole cyst. There is mild hydronephrosis. No calculi are identified. Left Kidney: The left kidney measures 10.6 x 5.1 x 4.6 cm. Renal parenchymal echotexture and thickness are normal. There are no masses. There is no hydronephrosis or renal calculi. The urinary bladder is unremarkable. Bilateral ureteral jets are identified. Before voiding, the urinary bladder measured 6.5 x 6.1 x 8.0 cm, for an estimated volume of 166 mL. After voiding, the urinary bladder measured 3.3 x 1.1 x 4.1 cm, for an estimated volume of 7.9 mL. IMPRESSION: 1. Mild right hydronephrosis. 2. Post void bladder residual of 7.9 mL. Assessment & Plan Assessment & Plan (1) Hydronephrosis, right: Code(s): N13.30 - Unspecified hydronephrosis Category: Medical (2) Microhematuria: Code(s): R31.29 - Other microscopic hematuria Category: Medical (3) Renal cyst: Code(s): N28.1 - Cyst of kidney, acquired Category: Medical Plan In office urinalysis results reviewed with the patient today; as noted above. We discussed at length potential causes of microscopic hematuria as well as hydronephrosis. Continue with planned CT urogram; as ordered by PCP She currently denies any bothersome urinary issues or concerns. She reports be happy with current voiding parameters. Follow-up in 2 months with imaging to be completed prior; or sooner with any issues, concerns, and or questions. Orders: Orders CT urogram 11/30/24 N13.30 - Unspecified hydronephrosis, R31.29 - Other microscopic hematuria Patient Instructions: The patient had an opportunity to ask questions regarding the treatment plan. All questions were answered. Physical exam, labs, and imaging were discussed and reviewed in detail. As well as risks, benefits, and discussion of treatment choices. No major barriers to understanding were identified. The patient expressed understanding and agreement with the above treatment plan. The patient was made aware they should contact our office by phone for worsening of their current condition, the appearance of new symptoms, or with any questions or concerns. Compliance is encouraged with any medications and follow up testing that is ordered. It is a privilege to be allowed the opportunity to participate in? your urological care.? Again, if you have any questions or concerns If you have any questions or concerns please do not hesitate to contact me. The office is [phone]. This note is constructed using voice recognition software. While every effort has been made to ensure accuracy accounts payable or receivable clerk errors may have been included. Yours sincerely, ROSI Brady Coding Level of Care Code New Pt Level 3 (36069) Diagnoses Hydronephrosis, right N13.30 Microhematuria R31.29 Renal cyst N28.1
== END 2024-12-14 15:00 | disposition home or self-care (01) ==
LOC: HO.HUSH 14:36
PROVIDERS: PCP Physician Assistant Medical; Visit Provider Nurse Practitioner Family
DX: N13.30 Unspecified hydronephrosis (principal); R31.29 Other microscopic hematuria; N28.1 Cyst of kidney, acquired; Z13.9 Encounter for screening, unspecified
CPT/HCPCS: 99203

== ENCOUNTER 2024-12-14 14:36 | Outpatient (REF) | payer OTHER, SELFPAY | END 2024-12-14 14:37 | disposition home or self-care (01) | LOC: HO.LNP 14:36 | PROVIDERS: PCP Physician Assistant Medical; Visit Provider Nurse Practitioner Family | DX: R31.29 Other microscopic hematuria (principal) | CPT/HCPCS: 81003 ==

== ENCOUNTER → 2025-01-23 10:18 | Outpatient (REF) | payer OTHER, SELFPAY ==
[2025-01-23 10:39] LABS: MANUAL DIFF FLAG NO
[2025-01-23 10:55] LABS: Basophils Percent Auto 0.9 % (0-2); Eosinophils Absolute Auto 0.2 X10*3/uL (0.0-0.4); Eosinophils Percent Auto 4.6 % (0-4); Hematocrit 37.5 % (37.0-47.0); Hemoglobin 12.8 g/dl (12.0-16.0); Imm Gran Abs Auto 0.01 X10*3/uL (0.00-0.03); Imm Gran Pct Auto 0.2 % (0.0-0.4); Lymphocytes Absolute Auto 1.4 X10*3/uL (1.2-4.9); Lymphocytes Percent Auto 30.8 % (20-40); Mean Corpuscular HGB Conc 34.1 g/dl (31.0-35.0); Mean Corpuscular Hemoglobin 32.1 pg (27.0-33.0); Monocytes Absolute Auto 0.3 X10*3/uL (0.1-1.2); Monocytes Percent Auto 6.6 % (2-11); Neutrophils Absolute Auto 2.6 x10*3/uL (2.0-8.3); Neutrophils Percent Auto 56.9 % (45-73); Platelet Count 233 X10*3/uL (160-400); Red Blood Count 3.99 X10*6/uL (4.20-5.50); Red Cell Distribution Width 11.7 % (11.0-16.0); White Blood Count 4.6 X10*3/uL (4.8-10.8)
[2025-01-23 10:56] LABS: Urine Cytology See Pathology rpt
[2025-01-23 11:33] LABS: Erythrocyte Sedimentation Rate 7 MM/HR (0-20)
[2025-01-23 11:51] LABS: Blood Urea Nitrogen 18 mg/dL (9-16); Estimated Glomerular Filt Rate > 60; Iron 117 mcg/dL (30-160); Percent Iron Saturation 42 % (15-50); Total Iron Binding Capacity 279 mcg/dL (228-428); Unsaturated Iron Binding 162 ug/dL
[2025-01-23 11:57] LABS: Vitamin B12 713 pg/mL (200-900)
[2025-01-23 12:06] LABS: Ferritin 116 ng/mL (10-250)
[2025-01-26 05:27] LABS: Zinc 74 mcg/dL (60-130)
[2025-01-27 14:04] LABS: Vitamin D 25-OH, D2 <4 ng/mL; Vitamin D 25-OH, D3 53 ng/mL; Vitamin D 25-OH, Total 53 ng/mL (30-100)
== END ==
LOC: HO.SL 10:18
PROVIDERS: Nurse Practitioner Family; PCP Physician Assistant Medical; Visit Provider Physician Assistant Medical
DX: E61.1 Iron deficiency (principal); R53.83 Other fatigue; G47.8 Other sleep disorders; R06.83 Snoring; R31.29 Other microscopic hematuria; M85.80 Other specified disorders of bone density and structure, unspecified site; N13.30 Unspecified hydronephrosis; Z91.89 Other specified personal risk factors, not elsewhere classified
CPT/HCPCS: 36415; 82306; 82565; 82607; 82728; 83540; 84520; 84630; 85025; 85652; 88112; 95806

== ENCOUNTER 2025-01-26 10:41 | Outpatient (REF) | payer OTHER, SELFPAY ==
--- NOTE | ~2025-01-26 | CT_ITS ---
EXAMINATION: CT ABDOMEN AND PELVIS WITHOUT AND WITH CONTRAST . CT UROGRAM. CLINICAL INFORMATION: Unspecified hydronephrosis. COMPARISON: Correlated to renal ultrasound dated November 15, 2024 reported in mild hydronephrosis, right kidney. TECHNIQUE: Noncontrast CT of the abdomen and pelvis is performed followed by split bolus contrast-enhanced images using 85 mL Omnipaque 350 contrast. Postcontrast imaging is performed during the combined nephrogram and excretion phase. Sagittal and coronal reformatted images were obtained on the technologist's workstation for both the precontrast and postcontrast phases. This CT examination was performed using dose optimization techniques as appropriate, variously including the following: *Automated exposure control *Adjustment of mA and/or kV according to patient size (this includes techniques or standardized protocols for targeted exams where dose is matched to indication/reason for exam; i.e. extremities or head) *Use of iterative reconstruction technique DLP: 911 mGy centimeter. FINDINGS: LUNG BASES: Excluded from the [id number]. LIVER, GALLBLADDER, AND BILIARY TREE: No fully inclusion of the liver. Desiccation from the gallbladder lumen. No pericholecystic fluid collection or gallbladder wall thickening. Common bile duct measures 4 mm. PANCREAS: No focal mass. No peripancreatic fluid collection. No main pancreatic ductal dilatation. SPLEEN: No focal lesion. Normal size. ADRENAL GLANDS: No nodular lesions. KIDNEYS AND URETERS: Right kidney: No nephrolithiasis. Prominent extrarenal pelvis with small caliber right ureter. No gross enhancing renal mass. Normal enhancement pattern of the renal parenchyma. There is contrast within the prominent pelvicalyceal system. Very little contrast in the right ureter Left kidney: No hydronephrosis. No nephrolithiasis. Extrarenal pelvis. Contrast within the urinary collecting system. Normal enhancement pattern of the renal parenchyma. No gross renal mass. BLADDER: Fluid-filled. GASTROINTESTINAL TRACT: Appendix is normal. No intestinal obstruction pattern. Diverticula, second portion of the duodenum. Abundant stool, large intestine. No pneumatosis intestinalis. No pneumoperitoneum. No pneumatosis intestinalis. ABDOMINAL WALL: No gross umbilical hernia. LYMPH NODES: Not enlarged. VASCULAR: No aneurysm or dissection, abdominal aorta. Tortuosity in the abdominal aorta. Calcified plaques in the common iliac arteries. PELVIC VISCERA: No fully evaluated. OSSEUS STRUCTURES: Spondylosis L3-4 and likely asymmetric to the right broad-based disc bulging and facet joint hypertrophy as well as ligamentum flavum resulting in central spinal canal stenosis and right neuroforamina stenosis at L3-4. Spondylosis at T11-12 resulting in central spinal canal stenosis and reverse curvature. S-shaped curvature of the thoracolumbar spine. Bony pelvis is intact. Coxofemoral joints are intact. Degenerative changes in the symphysis pubis. CT/CT urogram IMPRESSION: Consider UPJ configuration, right kidney. No nephrolithiasis. No gross renal mass. Cholelithiasis. Spondylosis resulting in central spinal canal and right neuroforamina stenosis at L3-4 and T11-12. Electronically signed by: David Rojas MD 01/26/2025 11:48 AM EDT
[2025-01-26] MEDS: iohexoL 350 MG/ML 100 ML INFUS..BTL IV (11:07)
== END 2025-01-26 10:42 | disposition home or self-care (01) ==
LOC: HO.CT 10:41
PROVIDERS: PCP Physician Assistant Medical; Visit Provider Physician Assistant Medical
DX: N13.30 Unspecified hydronephrosis (principal); R31.29 Other microscopic hematuria
CPT/HCPCS: 74178; Q9967

== ENCOUNTER → 2025-01-26 10:44 | Outpatient (BNV) | payer OTHER, SELFPAY | PROVIDERS: PCP Physician Assistant Medical; Visit Provider Radiology Diagnostic Radiology | DX: K80.20 Calculus of gallbladder without cholecystitis without obstruction (principal); M47.895 Other spondylosis, thoracolumbar region; M48.05 Spinal stenosis, thoracolumbar region | CPT/HCPCS: 74178 ==

== ENCOUNTER 2025-02-09 12:09 | Outpatient (AMB) | payer OTHER, SELFPAY ==
--- NOTE | 2025-02-09 12:12 | MHC.PC.OV ---
Vital Signs 02/09/25 12:17 Height 5 ft 4 in Weight 158 lb 2 oz BMI 27.1 BP 128/78 Blood Pressure Location Lt brachial Position Sitting Pulse 81 Pulse Source Pulse Oximeter Temp 98.6 F Temp Source Temporal Artery Scan Pulse Oximetry (%) 98 Oxygen Delivery Method Room Air Intake Visit Reasons: physical exam Intake Note: Chrissie presents in the office today for her annual physical. Allergies No Known Allergies Allergy (Verified 02/09/25 16:26) Tobacco use date assessed: 02/09/25 Dental Screening Dental Screen Date: 02/09/25 Did you have a dental visit in the last 12 months?: Yes Did you have a dental problem in the last 6 months where you did not have access to dental care?: No Was dental information given to patient?: Patient has dentist HPI HPI Comments History of Present Illness Details This is a 54-year-old female with a past medical history of right eye globe prosthesis, depression, vulvodynia , fatigue and lumbar spondylosis presenting for physical exam. She had a sleep study completed. There was not a lot of data because she had to remove the pulse oximeter because it made her fingers go numb. Recorded data was not consistent with sleep apnea. She denies snoring, witnessed apneic episodes. Non restorative sleep. Initial lab evaluation for fatigue demonstrated mild leukopenia with a white blood cell count of 3.7 which normalized when she repeated labs to 4600. Renal function and hepatic function were normal. TSH, cortisol and Lyme screening were negative/normal. Her urinalysis was positive for 3-5 red blood cells per high-power field. She was referred to Urology. She had a an ultrasound completed on 11/15/2024 which showed mild right hydronephrosis. She was referred to Urology. She had a CT urogram, and she has an appointment with Urology this afternoon to review the results. Hypertension-taking amlodipine 2.5 mg daily. Blood pressure is well-controlled. Vulvodynia is treated with gabapentin 600 mg. Followed by Gynecology. She has a history of chronic lower back pain and degenerative changes. She was seen at the arthritis treatment center and [facility] in the past. She has not injections and physical therapy. Pain radiates down the back of her right thigh sometimes. There is no loss of bladder or bowel control or numbness, tingling or weakness in her extremities. Pain is in the middle of the back the sides of the back and a lot of the times of the right lower back. It can be severe depending on movement. She is interested in consult with [facility]. CT urogram completed 01/26/2025 shows spondylosis, broad based disc bulging on the right at L3-L4 and facet joint hypertrophy as well as central canal spinal stenosis and right neural foraminal stenosis. Patient currently on semaglutide 0.5 mg weekly from a weight management program, but it is compounded, and she has concerns about getting this consistently with the new FDA restrictions. She spoke with her insurance and they will cover it given history of hypertension. She has successfully lost weight on the medication though BMI is still 27.1 today. ROS: Constitutional: No unexplained weight loss, fever, chills or night sweats. Eyes: No vision changes, blurry vision, double vision, eye pain, eye redness, eye discharge. ENT: No hearing loss, chronic congestion, bloody noses, ear pain or sore throat. Respiratory: No shortness of breath, cough or sputum production. Cardiovascular: No chest pain, chest pressure or chest discomfort. No palpitations or pedal edema. Gastrointestinal: No anorexia, nausea, vomiting or diarrhea. No abdominal pain or blood in stool. Genitourinary: No dysuria, hematuria, urinary frequency. Neurologic: No headache, dizziness, syncope, unilateral weakness, ataxia, numbness or tingling in the extremities. Musculoskeletal: See HPI. Hematologic/Lymphatics: No bleeding or bruising. No painful lymph nodes. Skin: No rash or itching. Endocrine: No cold or heat intolerance. No polyuria or polydipsia. Psychiatric: No SI/HI. Physical exam: Constitutional: Alert, in no distress. Ear, Nose and Throat: Canals clear. TMs normal. Normal nasal mucosa. No nasal discharge. No oral lesions. Neck: Supple, Full range of motion. No lymphadenopathy. No palpable thyroid masses. Respiratory: Clear to auscultation. Cardiovascular: S1 S2 regular. No murmurs. Gastrointestinal: Abdomen soft, non-tender, non-distended. Normal bowel sounds. No palpable masses. Genitourinary: No costovertebral angle tenderness. Neurologic: No focal neurological deficits. Symmetric patellar reflexes. Moves all extremities spontaneously. Sensation intact bilaterally. Skin: No rashes Musculoskeletal: Midline spinal tenderness around L5-S1 level. Full range of motion but pain with flexion and extension. Negative straight leg raises bilaterally. Lower extremity strength 5/5 bilaterally. Extremities: Warm and well perfused. No clubbing, cyanosis or edema. 3+ peripheral pulses bilaterally. 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 Sleep study schedule 11/28/24 [facility] Medical History (Updated 02/10/25 @ 17:16 by JOSEPH Fraser) Overweight (BMI 25.0-29.9) Routine physical examination Screening for cardiovascular condition Lumbar spinal stenosis Hydronephrosis, right Microhematuria Chronic low back pain Fatigue Non-restorative sleep Essential hypertension Vulvodynia Depression High blood pressure Surgical History H/O lateral meniscus repair of right knee Family History Mother FH: heart attack Father Lung cancer Sister FH: heart attack Social History Housing: House Alcohol intake: current Patient Tobacco Use Status: Never used Tobacco e-Cigarette/Vaping Use: Never Used Second Hand Smoke Exposure: No service: No Current occupational status: employed 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 1. Little interest or pleasure in doing things: not at all 2. Feeling down, depressed, or hopeless: not at all 3. Trouble falling or staying asleep, or sleeping too much: not at all 4. Feeling tired or having little energy: more than half the days 5. Poor appetite or overeating: not at all 6. Feeling bad about yourself - or that you are a failure or have let yourself or your family down: not at all 7. Trouble concentrating on things, such as reading the newspaper or watching television: not at all 8. Moving or speaking so slowly that other people could have noticed. Or the opposite - being so fidgety or restless that you have been moving around a lot more than usual: not at all 9. Thoughts that you would be better off or of hurting yourself in some way: not at all Total score: 2 Depression Screening Interpretation: Negative Depression Screening Done: Yes 23493 - PHQ-9 Billing: Yes Source: Developed by Drs. Jesus Buckley, Zoila Conley, Michael Blake and colleagues, with an educational marta from [employer]. Thrive Questionnaire Date Thrive assessed: 02/09/25 I am a: Patient What is your living situation today?: I have a steady place to live Within the past 12 months, did the food you bought not last and you didn't have the money to get more?: Never true Within the past 12 months, did you worry whether your food would run out before you got money to buy more?: Never true Do you have trouble paying for medicines?: No Do you have trouble getting transportation to medical appointments?: No Do you have trouble paying your heating and electricity bill?: No Do you have trouble taking care of your child, family member or friend?: No Do you have trouble with day-to-day activities such as bathing, preparing meals, shopping, managing finances, etc.?: No Are you currently unemployed and looking for a job?: No Are you interested in more education?: No Please select the resources that you would like help with: None Currently or been in a relationship where the following occur: No concerns reported THRIVE Score: 0 AUDIT C Alcohol Use Questionnaire (AUDIT-C) 1. How often do you have a drink containing alcohol?: Monthly or less 2. How many drinks containing alcohol do you have on a typical day when you are drinking?: 1 or 2 3. How often do you have six or more drinks on one occasion?: Never Total Score: 1 Score Reviewed/Action Taken: No FRED-7 AMB Questionnaire FRED-7 Date FRED - 7 assessed: 02/09/25 Feeling nervous, anxious, or on edge: 0 = Not at all Not being able to stop or control worryin = Not at all Worrying too much about different things: 0 = Not at all Trouble relaxin = Not at all Being so restless that it is hard to sit still: 0 = Not at all Becoming easily annoyed or irritable: 0 = Not at all Feeling afraid as if something awful might happen: 0 = Not at all Total FRED-7 score (0-4 normal; 5-9 mild; 10-14 moderate; 15-21 severe): 0 Source: Developed by Drs. Jesus Buckley, Zoila Conley, Michael Blake and colleagues, with an educational marta from [employer]. FRED-7 Assessment Billing FRED-7 Assessment Tool: FRED-7 Assessment 23148 Physical exam (Primary Care) Vital Signs: Last Vital Signs Temp 98.6 F 02/09/25 12:17 Pulse 81 02/09/25 12:17 BP 128/78 02/09/25 12:17 Pulse Ox 98 02/09/25 12:17 Oxygen Delivery Method Room Air 02/09/25 12:17 BMI result Body Mass Index 27.1 Tobacco/Smoking Status: Tobacco use Status Tobacco use date assessed 02/09/25 02/09/25 12:15 Patient Tobacco Use Status Never used Tobacco 02/09/25 12:15 e-Cigarette/Vaping Use Never Used 02/09/25 12:15 PHQ-9: PHQ-9 Score PHQ-9: Total score 2 02/09/25 12:35 Depression Screening Interpretation: Negative Thrive Assessment: Date of Thrive Assessment Date Thrive assessed 02/09/25 02/09/25 12:15 Currently or been in a relationship where the following occur: No concerns reported Coding Level of Care Code Est Pt Prev Care 40-64y(67690) Diagnoses Lumbar spinal stenosis M48.061 Hydronephrosis, right N13.30 Essential hypertension I10 Vulvodynia N94.819 Depression F32.A Routine physical examination Z00.00 Overweight (BMI 25.0-29.9) E66.3 Additional Codes FRED-7 Assessment Billing - FRED-7 Assessment Tool: FRED-7 Assessment 25116 ([id number]) PHQ-9 - 98927 - PHQ-9 Billing: Yes ([id number]) Assessment & Plan Assessment & Plan (1) Lumbar spinal stenosis: Code(s): M48.061 - Spinal stenosis, lumbar region without neurogenic claudication Category: Medical Plan: She has tried conservative treatment including injections and physical therapy. Evidence of spinal canal stenosis and neuroforaminal narrowing on recent CT urogram. Ordered MRI of the lumbar spine in preparation for referral to the spine clinic. (2) Hydronephrosis, right: Code(s): N13.30 - Unspecified hydronephrosis Category: Medical Plan: Follow up with Urology as planned. (3) Essential hypertension: Code(s): I10 - Essential (primary) hypertension Category: Medical Plan: Controlled. Continue amlodipine. (4) Vulvodynia: Code(s): N94.819 - Vulvodynia, unspecified Category: Medical Plan: Stable on gabapentin. (5) Depression: Code(s): F32.A - Depression, unspecified Category: Medical Plan: Stable on current regimen. (6) Routine physical examination: Code(s): Z00.00 - Encounter for general adult medical examination without abnormal findings Category: Medical Plan: Patient is seen today for a routine physical. As part of this visit we reviewed the following issues, which are considered and essential part of preventative health in this age group: - Breast Cancer screening - Annual Ice Cutter exam - Screening for colon cancer - declined colonoscopy. Cologuard ordered - Blood pressure screening - Cholesterol screening - Osteoporosis prevention including calcium/vitamin D intake, weight bearing exercise & smoking cessation - Nutritional and exercise counseling - Counseling of injury prevention including fire prevention, smoke alarms and seat belt usage - Education about skin cancer - Recommendations about immunizations - Recommendation of an eye exam - Screening for substance abuse (7) Overweight (BMI 25.0-29.9): Code(s): E66.3 - Overweight Category: Medical Plan: Increase semaglutide to 1 mg weekly. I will take over this medication. Side effects and administration reviewed. Patient has BMI 27.1 and history of hypertension. It is medically necessary. Continue lifestyle modifications. Plan Follow up in 6 months. Orders: Orders MR lumbar spine wo con 02/09/25 M48.061 - Spinal stenosis, lumbar region without neurogenic claudication Lipid Panel 02/09/25 Z13.6 - Encounter for screening for cardiovascular disorders Referrals Cologuard Test Z12.11 - Encounter for screening for malignant neoplasm of colon Medications: New semaglutide (weight loss) (Wegovy) 1 mg (0.5 mL) subcut Q7D 2 mL 3RF Refilled gabapentin 600 mg PO DAILY 90 tabs 1RF
[2025-02-09 12:17] VITALS: BP 128/78; PULSE 81; TEMP 37; O2SAT 98; BMI 27.1
== END 2025-02-09 13:00 | disposition home or self-care (01) ==
LOC: HO.HMCFM 12:10
PROVIDERS: PCP Physician Assistant Medical; Visit Provider Physician Assistant Medical
DX: M48.061 Spinal stenosis, lumbar region without neurogenic claudication (principal); N13.30 Unspecified hydronephrosis; I10 Essential (primary) hypertension; N94.819 Vulvodynia, unspecified; F32.A Depression, unspecified; Z00.00 Encounter for general adult medical examination without abnormal findings; E66.3 Overweight

== ENCOUNTER → 2025-02-09 12:09 | Outpatient (BNVA) | payer OTHER, SELFPAY | PROVIDERS: PCP Physician Assistant Medical; Visit Provider Physician Assistant Medical | DX: Z00.01 Encounter for general adult medical examination with abnormal findings (principal); Z13.31 Encounter for screening for depression; I12.9 Hypertensive chronic kidney disease with stage 1 through stage 4 chronic kidney disease, or unspecified chronic kidney disease; N18.30 Chronic kidney disease, stage 3 unspecified; R31.29 Other microscopic hematuria; M48.061 Spinal stenosis, lumbar region without neurogenic claudication; N94.819 Vulvodynia, unspecified; F32.A Depression, unspecified; E66.3 Overweight; Z68.27 Body mass index [BMI] 27.0-27.9, adult; Z71.3 Dietary counseling and surveillance | CPT/HCPCS: 96127 ==

== ENCOUNTER 2025-02-09 16:19 | Outpatient (AMB) | payer OTHER, SELFPAY ==
--- NOTE | 2025-02-09 16:18 | A.OFFVIS_ITS ---
Intake Visit Reasons: 2 month Follow up/ CT(set) Intake Note: Patient presents today for tele visit follow up for microscopic hematuria and CT Scan Urology Medication: none Blood Thinner: none Antibiotic Allergies: none Elevator Dispatcher Required: No Allergies No Known Allergies Allergy (Verified 02/09/25 16:26) Medication List - Last Reconciled 02/09/25 by TYLER Brady- amlodipine 2.5 mg PO DAILY fluvoxamine 100 mg PO BID gabapentin 600 mg PO DAILY semaglutide (weight loss) (Wegovy) 1 mg (0.5 mL) subcut Q7D HPI Comments Details: Jarad is a very pleasant 54-year-old female patient of Dr. Underwood. She has a past medical history of chronic low-back pain, fatigue, hypertension, vulvodynia, depression, and hypertension. She is being follow-up on today via video telehealth. Of note, patient was seen approximately 2 months ago as a new patient for microscopic hematuria at which time a CT urogram was ordered for further assessment evaluation. Patient did have a retroperitoneal ultrasound 11/29 prior to her new patient appointment that noted right kidney with mild hydronephrosis and 5 mm upper pole cysts. Left kidney with no masses, hydronephrosis, and or renal calculi. Recent CT urogram results were reviewed and communicated with the patient today. 01/29 consider UPJ configuration, right kidney. No nephrolithiasis or gross renal masses noted bilaterally. Per radiology report. Previous urine cytology 01/29 Negative for high-grade urothelial carcinoma. We did discussed at length potential causes of hydronephrosis as well as further workup in risks and benefits of these interventions. She continues to deny any bothersome urinary issues or concerns. She denies urinary urgency, urinary frequency, incontinence, nocturia, gross/visible hematuria, dysuria, foul smelling urine, changes to urinary stream, flank pain, fever, and or chills. She is happy with her current voiding parameters. We discussed potential causes of microscopic hematuria as well as hydronephrosis. She denies any previous history of workplace chemical exposure and or nicotine dependence. She does report previously following up with the uro air traffic instructor a few years ago for an episode of urinary retention however this episode was a solitary event. She otherwise offers no other issues or concerns at this time. BUN:10/01 22, 01/29 18 Creatinine: 10/01 0.77, 01/29 0.78 PFSH Medical History Screening for cardiovascular condition Lumbar spinal stenosis Hydronephrosis, right Microhematuria Chronic low back pain Fatigue Non-restorative sleep Essential hypertension Vulvodynia Depression High blood pressure Surgical History H/O lateral meniscus repair of right knee Family History Mother FH: heart attack Father Lung cancer Sister FH: heart attack Social History Housing: House Alcohol intake: current Patient Tobacco Use Status: Never used Tobacco e-Cigarette/Vaping Use: Never Used Second Hand Smoke Exposure: No service: No Current occupational status: employed 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 Current occupational exposures/hazards: No Cognitive needs: No Hearing needs: No Vision needs: No Review of Systems Const All systems reviewed & are unremarkable except as noted in HPI and below Physical Exam Const General: cooperative, healthy appearing, comfortable, no acute distress, well developed, alert and awake Orientation/consciousness: patient oriented x3 Resp Effort & Inspection: normal respiratory effort and able to speak in complete sentences Neuro General: patient oriented x3 Psych Speech and movement: Clear speech present Affect: normal affect Attitude: cooperative Thought process: Normal thought process present Thought content: Normal thought content present Insight: Fair insight present (Psych) Judgement: Fair judgement present (Psych) Telehealth Telehealth Telehealth Platform: [facility] Location of provider rendering services: practice address Location of patient: address on file Patient Identification confirmed using: Name, : Yes Telehealth method: video Patient verbally consented to treatment: Yes Patient verbally consented to billing insurance company: Yes Patient informed of any privacy concerns related to visit: Yes Minutes spent on Phone/Video with Pt.: 15 Results Reviewed Results Reviewed: Date of Service: 01/26/25 Procedure(s): CT urogram FINDINGS: LUNG BASES: Excluded from the [id number]. LIVER, GALLBLADDER, AND BILIARY TREE: No fully inclusion of the liver. Desiccation from the gallbladder lumen. No pericholecystic fluid collection or gallbladder wall thickening. Common bile duct measures 4 mm. PANCREAS: No focal mass. No peripancreatic fluid collection. No main pancreatic ductal dilatation. SPLEEN: No focal lesion. Normal size. ADRENAL GLANDS: No nodular lesions. KIDNEYS AND URETERS: Right kidney: No nephrolithiasis. Prominent extrarenal pelvis with small caliber right ureter. No gross enhancing renal mass. Normal enhancement pattern of the renal parenchyma. There is contrast within the prominent pelvicalyceal system. Very little contrast in the right ureter Left kidney: No hydronephrosis. No nephrolithiasis. Extrarenal pelvis. Contrast within the urinary collecting system. Normal enhancement pattern of the renal parenchyma. No gross renal mass. BLADDER: Fluid-filled. GASTROINTESTINAL TRACT: Appendix is normal. No intestinal obstruction pattern. Diverticula, second portion of the duodenum. Abundant stool, large intestine. No pneumatosis intestinalis. No pneumoperitoneum. No pneumatosis intestinalis. ABDOMINAL WALL: No gross umbilical hernia. LYMPH NODES: Not enlarged. VASCULAR: No aneurysm or dissection, abdominal aorta. Tortuosity in the abdominal aorta. Calcified plaques in the common iliac arteries. PELVIC VISCERA: No fully evaluated. OSSEUS STRUCTURES: Spondylosis L3-4 and likely asymmetric to the right broad-based disc bulging and facet joint hypertrophy as well as ligamentum flavum resulting in central spinal canal stenosis and right neuroforamina stenosis at L3-4. Spondylosis at T11-12 resulting in central spinal canal stenosis and reverse curvature. S-shaped curvature of the thoracolumbar spine. Bony pelvis is intact. Coxofemoral joints are intact. Degenerative changes in the symphysis pubis. IMPRESSION: Consider UPJ configuration, right kidney. No nephrolithiasis. No gross renal mass. Cholelithiasis. Spondylosis resulting in central spinal canal and right neuroforamina stenosis at L3-4 and T11-12. Assessment & Plan Assessment & Plan (1) Hydronephrosis, right: Code(s): N13.30 - Unspecified hydronephrosis Category: Medical (2) Microhematuria: Code(s): R31.29 - Other microscopic hematuria Category: Medical Plan Recent CT results were reviewed with the patient today; as noted above. We discussed potential causes of hydronephrosis as well as further workup to include nuclear renal scan. Recent BUN and creatinine results reviewed with the patient today; as noted above. She denies any bothersome urinary issues or concerns. She reports be happy with current voiding parameters. Will obtain nuclear renal scan for further assessment evaluation. Follow-up in 1-3 months with imaging to be completed prior; or sooner with any issues, concerns, and or questions. Orders: Orders Creatinine Today N13.30 - Unspecified hydronephrosis NM renal flow w pharm int Today N13.30 - Unspecified hydronephrosis Blood Urea Nitrogen Today N13.30 - Unspecified hydronephrosis Patient Instructions: The patient had an opportunity to ask questions regarding the treatment plan. All questions were answered. Physical exam, labs, and imaging were discussed and reviewed in detail. As well as risks, benefits, and discussion of treatment choices. No major barriers to understanding were identified. The patient expressed understanding and agreement with the above treatment plan. The patient was made aware they should contact our office by phone for worsening of their current condition, the appearance of new symptoms, or with any questions or concerns. Compliance is encouraged with any medications and follow up testing that is ordered. It is a privilege to be allowed the opportunity to participate in? your urological care.? Again, if you have any questions or concerns If you have any questions or concerns please do not hesitate to contact me. The office is [phone]. This note is constructed using voice recognition software. While every effort has been made to ensure accuracy home assessment nurse errors may have been included. Yours sincerely, ROSI Brady Coding Level of Care Code Tele Est Pt Level 3 (82097) Diagnoses Hydronephrosis, right N13.30 Microhematuria R31.29
== END 2025-02-09 16:30 | disposition home or self-care (01) ==
LOC: HO.HUSH 16:19
PROVIDERS: PCP Physician Assistant Medical; Visit Provider Nurse Practitioner Family
DX: N13.30 Unspecified hydronephrosis (principal); R31.29 Other microscopic hematuria
CPT/HCPCS: 99213

== ENCOUNTER → 2025-02-28 07:50 | Outpatient (BNV) | payer OTHER, SELFPAY | PROVIDERS: Visit Provider Radiology Diagnostic Radiology | DX: M48.04 Spinal stenosis, thoracic region (principal) | CPT/HCPCS: 72148 ==

== ENCOUNTER 2025-02-28 08:07 | Outpatient (REF) | payer OTHER, SELFPAY ==
--- NOTE | ~2025-02-28 | MR_ITS ---
EXAMINATION: MR LUMBAR SPINE WITHOUT IV CONTRAST History: M48.061 - Spinal stenosis, lumbar region without neurogenic claudication Technique: Sagittal T1, T2 and STIR, and axial T1 and T2 weighted images of the lumbar spine were obtained per departmental protocol. Comparison: There are no prior studies available for comparison. Findings: The vertebral bodies maintain normal height, alignment, and marrow signal intensity. There is moderate degenerative disc disease at the L3-4 level with disc desiccation and loss of disc height. There is a Schmorl's node at the T11-12 level posteriorly with associated posterior spurring. At T11-12, there is posterior spurring and a moderate disc bulge. There is resultant moderate to severe central spinal stenosis. The neural foramina patent. At T12-L1,there is no evidence of disc herniation, central spinal stenosis, or neural foraminal narrowing. At L1-2, there is no evidence of disc herniation, central spinal stenosis, or neural foraminal narrowing. At L2-3, there is mild facet and ligamentum flavum hypertrophy without evidence of disc herniation, central spinal stenosis, or neural foraminal narrowing. At L3-4, there is a moderate disc bulge with a superimposed right foraminal/lateral disc protrusion. This likely causes mass effect on the exiting right 3rd nerve root. There is facet and ligamentum flavum hypertrophy causing right neural foraminal stenosis and narrowing of the inferior recess of the left neural foramen. At L4-5, there is facet and ligamentum flavum hypertrophy without central spinal or neural foraminal stenosis. At L5-S1, there is no evidence of disc herniation, central spinal stenosis, or neural foraminal narrowing. The conus terminates at the T12-L1 level and demonstrates normal signal intensity. The visualized paraspinal soft tissues are unremarkable. MR/MR lumbar spine wo con Impression: 1. Moderate to severe central spinal stenosis at T11-12 secondary to posterior spurring and a moderate disc bulge. 2. Moderate disc bulge with superimposed right foraminal/lateral disc protrusion at L3-4 likely causing mass effect on the exiting right 3rd nerve root and right neural foraminal narrowing. Electronically signed by: Jesus Garber MD 02/28/2025 08:49 AM EDT
== END 2025-02-28 08:08 | disposition home or self-care (01) ==
LOC: HO.MRI 08:07
PROVIDERS: Visit Provider Physician Assistant Medical
DX: M48.061 Spinal stenosis, lumbar region without neurogenic claudication (principal)
CPT/HCPCS: 72148

== ENCOUNTER → 2025-03-02 10:57 | Outpatient (REF) | payer OTHER, SELFPAY ==
--- NOTE | ~2025-03-02 | NM_ITS ---
EXAMINATION: NM KIDNEY FLOW FUNCTION WITH RX HISTORY: N13.30 - Unspecified hydronephrosis. TECHNIQUE: A renogram and renal scan was performed following intravenous administration of 10 mCi technetium 99m-DTPA. Patient received 34 mg IV Lasix approximately 30 minutes after injection of the radiopharmaceutical. COMPARISON: Correlation is made with a CT urogram dated 01/26/2025. FINDINGS: There is normal symmetric blood flow to both kidneys. The percentage of cortical activity is 54.6% on the left and 45.5% on the right. There is a prominent right extrarenal pelvis. After the administration of intravenous Lasix, there is washout from both renal collecting systems. The halftime of excretion after Lasix administration is 8.1 minutes on the left and 13.4 minutes on the right. NM/NM renal flow w pharm int IMPRESSION: Findings consistent with a right extrarenal pelvis. No evidence of obstruction. Electronically signed by: Jesus Garber MD 03/02/2025 02:31 PM EDT
== END ==
LOC: HO.NUCMED 10:57
PROVIDERS: PCP Physician Assistant Medical; Visit Provider Nurse Practitioner Family
DX: N13.30 Unspecified hydronephrosis (principal)
CPT/HCPCS: 78708; A9539; J1938

== ENCOUNTER → 2025-03-02 10:58 | Outpatient (BNV) | payer OTHER, SELFPAY | PROVIDERS: PCP Physician Assistant Medical; Visit Provider Radiology Diagnostic Radiology | DX: N13.30 Unspecified hydronephrosis (principal) | CPT/HCPCS: 78708 ==

== ENCOUNTER 2025-03-23 12:58 | Outpatient (AMB) | payer OTHER, SELFPAY ==
--- NOTE | 2025-03-23 13:02 | HO.SPINEOV ---
Vital Signs 03/23/25 13:05 Height 5 ft 4 in Weight 158 lb BMI 27.1 Intake Visit Reasons: lumbar stenosis Intake Note: Ms. Garcia is here today c/c low back pain. 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 She is a very nice 55-year-old female who has had chronic low back pain for many years. 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 She has had progressively worsening symptoms over time. Now she has a constant midline low back pain that is aggravated with standing and walking. It can also be aggravated if she is sitting down for too long. Bending forward seems to make it feel a little bit better. She takes ibuprofen, gabapentin and Tylenol daily to help with the pain. In the past she has been through physical therapy and has continued to do the exercises and tries to stay active. She underwent chiropractic treatment for years. Sometimes that would hurt more than it helped. She saw the people at [facility] and underwent numerous rounds of injections. Originally the symptoms would improve after the injections but at the end it only seemed to make things worse in the injection started hurting. She is here today to follow-up after MRI shows degenerative disc disease at L3-4. She has no pain tingling or numbness going down the legs. She does get an altered sensation in her right foot if she is walking slowly but it improves as she walks faster. PMH: Hypertension, meniscus surgery but other than that she is very healthy. Social hx: She does not smoke, drink or use any recreational drugs Medications: Amlodipine, gabapentin and fluvoxamine Allergies: None Physical exam: Strength, gait and reflexes are normal Imaging review: Lumbar MRI shows degenerative disc disease at L3-4 with more right-sided collapse of the disc space and right lateral recess stenosis. There is a small synovial cyst projecting posteriorly off the facet joint at L3-4. No significant Modic endplate changes seen. No herniated discs or fractures. The rest of the spine looks otherwise okay outside of the thoracolumbar junction where there is some degenerative disc disease and moderate central canal stenosis. Impression: 55-year-old female presents for evaluation of chronic midline lower lumbar pain that is present all throughout the day, aggravated with activity, but can also be present when she is lying down or sitting. We sat down and reviewed her imaging together. We talked about the fact that back pain is often very difficult to establish the exact location in origin of the symptoms. She has [id number] degenerative disc disease and some facet arthropathy at L3-4 and that is the only spot that I see she has degeneration. I think this could be partly to explain her symptoms, but we have no way of absolutely being sure that this is the source of her pain as we do see findings like this in patients who have no symptoms. Therefore, I told her the success rate for fusion in a situation like this is 60-70%. We generally tell people who are not disabled by the pain to try to avoid it if at all possible as there are risks of adjacent segment disease in his situation where we have to fuse the segment of the spine. Right now, the symptoms are not incapacitating so I told her to try to hold off as long as she can. If the pain escalates and gets more severe, I would be happy to see her back. For now if she wants to continue doing her physical therapy exercises and trying to manage with Tylenol and Motrin that is certainly reasonable. She could also reconnect with the people at [facility]. Thank you for allowing us to care for your patient. The total time spent with this visit with this patient was 45 minutes reviewing history, physical exam, lumbar imaging review, and implementation of treatment plan or further diagnostic testing Rafal Miguel MD,PhD [facility] Coding Level of Care Code New Pt Level 4 (92894) Diagnoses Lumbar spinal stenosis M48.061
[2025-03-23 13:05] VITALS: BMI 27.1
== END 2025-03-23 14:16 | disposition home or self-care (01) ==
LOC: HO.HNS 12:59
PROVIDERS: Referring Provider Physician Assistant Medical; Visit Provider Physician Assistant
DX: M48.061 Spinal stenosis, lumbar region without neurogenic claudication (principal)
CPT/HCPCS: 99204

== ENCOUNTER 2025-08-14 11:18 | Outpatient (AMB) | payer OTHER, SELFPAY ==
--- NOTE | 2025-08-14 11:29 | A.OFFPC_ITS ---
Vital Signs 08/14/25 11:33 08/14/25 12:01 Height 5 ft 4 in Weight 171 lb 4 oz BMI 29.4 BP 122/86 120/82 Blood Pressure Location Rt brachial Position Sitting Respiration 14 Pulse 88 Pulse Source Pulse Oximeter Temp 98.2 F Temp Source Temporal Artery Scan Pulse Oximetry (%) 98 Oxygen Delivery Method Room Air Intake Visit Reasons: med review HTN Intake Note: Chrissie presents in the office today for a medication review and hypertension. Manager Public Required: No Is last menstrual period known: No Post menopausal: Yes Patient : No Allergies No Known Allergies Allergy (Verified 08/14/25 11:31) Tobacco use date assessed: 08/14/25 Dental Screening Dental Screen Date: 08/14/25 Did you have a dental visit in the last 12 months?: Yes Did you have a dental problem in the last 6 months where you did not have access to dental care?: No Was dental information given to patient?: Patient has dentist HPI HPI Comments History of Present Illness Details This is a 55-year-old female with a past medical history of right eye globe prosthesis, depression, vulvodynia , fatigue and lumbar spondylosis presenting for follow up. Microhematuria-repeat UA with Urology was negative. She had a an ultrasound completed on 11/15/2024 which showed mild right hydronephrosis. She had a CT urogram on 01/26/2025 demonstrating no gross renal masses and possible UPJ configuration of the right kidney. She subsequently underwent a nuclear renal scan on 03/02/2025 which showed a right extrarenal pelvis but no evidence of obstruction. She has a follow up appointment with Urology on 05/24/2025, but she did not go to this appointment. She denies urinary frequency, flank pain, dysuria josh hematuria. Hypertension-taking amlodipine 2.5 mg daily. Blood pressure today is 120/82. Vulvodynia is treated with gabapentin 600 mg. Followed by Gynecology. Chronic lower back pain and right knee pain-previously evaluated at the [facility] treatment center and [facility]. Pain is in the lower back with radiation down the back of the right thigh. No loss of bowel or bladder control or numbness or tingling in the extremities. Pain is moderate to severe depending on the day. She was evaluated at the spine Clinic at [facility] on 03/23/2025. She has [id number] degenerative disc disease and facet arthropathy in the lower back. Surgery was discussed but not indicated at this time unless pain escalates and gets more severe. She continued with physical therapy. She was evaluated at [facility] for right knee pain, she has had an arthroscopy 12/11/[address] Nick[address] She did physical therapy. She has a follow up appointment scheduled. 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 The cold causes her knee pain and back pain to worsen and muscles to tense up in her lower back. She is requesting a note for a space heater. She is receiving tirzepatide from [facility] because she did gain weight when she stopped taking it. She continues fluvoxamine for depression. Patient has felt like there is fluid in her right ear or that it is blocked for a couple of weeks. No pain. ROS: Constitutional: No fevers or chills ENT: No ear pain, see HPI, no congestion or sore throat Respiratory: No shortness of breath, cough or sputum production. Gastrointestinal: No anorexia, nausea, vomiting or diarrhea. No abdominal pain or blood in stool. Genitourinary: No dysuria, hematuria, urinary frequency. Neurologic: No headache, dizziness, syncope, unilateral weakness, ataxia, numbness or tingling in the extremities. Musculoskeletal: See HPI. Psychiatric: No SI/HI. Physical exam: Constitutional: Alert, in no distress. Ears: Right canal occluded by dark brown cerumen. Left canal clear. Left tympanic membrane min and pearly. Neck: Supple, Full range of motion. No lymphadenopathy. Respiratory: Clear to auscultation. Cardiovascular: S1 S2 regular. No murmurs. Psychiatric: Normal mood and affect [facility] Medical History (Updated 08/15/25 @ 10:35 by JOSEPH Fraser) Right ear impacted cerumen Neural foraminal stenosis of lumbar spine Central stenosis of spinal canal Overweight (BMI 25.0-29.9) Routine physical examination Screening for cardiovascular condition Lumbar spinal stenosis Hydronephrosis, right Microhematuria Chronic low back pain Fatigue Non-restorative sleep Essential hypertension Vulvodynia Depression High blood pressure Surgical History H/O lateral meniscus repair of right knee Family History Mother FH: heart attack Father Lung cancer Sister FH: heart attack Social History (Updated 08/14/25 @ 11:33 by Susannah Sr CMA) Housing: House Alcohol intake: current Patient Tobacco Use Status: Never used Tobacco e-Cigarette/Vaping Use: Never Used Second Hand Smoke Exposure: No service: No Current occupational status: employed 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 Current occupational exposures/hazards: No Cognitive needs: No Hearing needs: No Vision needs: No Questionnaire Thrive Questionnaire Date Thrive assessed: 09/25/24 I am a: Patient What is your living situation today?: I have a steady place to live Within the past 12 months, did the food you bought not last and you didn't have the money to get more?: Never true Within the past 12 months, did you worry whether your food would run out before you got money to buy more?: Never true Do you have trouble paying for medicines?: No Do you have trouble getting transportation to medical appointments?: No Do you have trouble paying your heating and electricity bill?: No Do you have trouble taking care of your child, family member or friend?: No Do you have trouble with day-to-day activities such as bathing, preparing meals, shopping, managing finances, etc.?: No Are you currently unemployed and looking for a job?: No Are you interested in more education?: No Please select the resources that you would like help with: None Currently or been in a relationship where the following occur: No concerns reported THRIVE Score: 0 FRED-7 AMB Questionnaire FRED-7 Date FRED - 7 assessed: 02/09/25 Source: Developed by Drs. Jesus Buckley, Zoila Conley, Michael Blake and colleagues, with an educational marta from [employer]. Physical exam (Primary Care) Vital Signs: Last Vital Signs Temp 98.2 F 08/14/25 11:33 Pulse 88 08/14/25 11:33 Resp 14 08/14/25 11:33 BP 120/82 08/14/25 12:01 Pulse Ox 98 08/14/25 11:33 Oxygen Delivery Method Room Air 08/14/25 11:33 BMI result Body Mass Index 29.4 Tobacco/Smoking Status: Tobacco use Status Tobacco use date assessed 08/14/25 08/14/25 11:34 Patient Tobacco Use Status Never used Tobacco 08/14/25 11:33 e-Cigarette/Vaping Use Never Used 08/14/25 11:33 Thrive Assessment: Date of Thrive Assessment Date Thrive assessed 09/25/24 08/14/25 11:31 Currently or been in a relationship where the following occur: No concerns reported Coding Level of Care Code Est Pt Level 4 (48934) Complex visit Add On G2211 Diagnoses Lumbar spinal stenosis M48.061 Hydronephrosis, right N13.30 Essential hypertension I10 Vulvodynia N94.819 Persistent depressive disorder F34.1 Depression Type: persistent depressive disorder Overweight (BMI 25.0-29.9) E66.3 Right ear impacted cerumen H61.21 Assessment & Plan Assessment & Plan (1) Lumbar spinal stenosis: Code(s): M48.061 - Spinal stenosis, lumbar region without neurogenic claudication Category: Medical Plan: She was evaluated at the spine Clinic at [facility]. She does take gabapentin which is actually for vulvodynia, and she can use Tylenol as needed for pain up to 3000 mg total per 24 hours. She is doing physical therapy exercises. She was instructed to follow up with the spine clinic if the pain worsens or becomes debilitating. 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 (2) Hydronephrosis, right: Code(s): N13.30 - Unspecified hydronephrosis Category: Medical Plan: Advised patient to contact Urology to follow up. Recheck urinalysis due to history of microhematuria which did not persist when UA was repeated with Urology. Imaging did not show any masses. (3) Essential hypertension: Code(s): I10 - Essential (primary) hypertension Category: Medical Plan: Continue amlodipine. (4) Vulvodynia: Code(s): N94.819 - Vulvodynia, unspecified Category: Medical Plan: Stable on gabapentin. (5) Depression: Code(s): F32.A - Depression, unspecified Category: Medical Qualifiers: Depression Type: persistent depressive disorder Qualified Code(s): F34.1 - Dysthymic disorder Plan: Stable on current regimen. (6) Overweight (BMI 25.0-29.9): Code(s): E66.3 - Overweight Category: Medical Plan: Patient is on tirzepatide prescribed by [facility]. (7) Right ear impacted cerumen: Code(s): H61.21 - Impacted cerumen, right ear Category: Medical Plan: Used Debrox drops and return for ear flush. Plan Follow up in 6 months for a physical exam. Orders: Orders UA w Microscopic 08/14/25 R39.9 - Unspecified symptoms and signs involving the genitourinary system Urine Culture 08/14/25 R39.9 - Unspecified symptoms and signs involving the genitourinary system Referrals Dermatology Referral Z12.83 - Encounter for screening for malignant neoplasm of skin Medications: New carbamide peroxide 6.5% (Debrox) 5 drps otic (ear) right Q12H 15 mL 0RF 4 days Refilled gabapentin 600 mg PO DAILY 90 tabs 1RF
[2025-08-14 11:33] VITALS: BP 122/86; PULSE 88; RESP 14; TEMP 36.8; O2SAT 98; BMI 29.4
[2025-08-14 12:01] VITALS: BP 120/82
== END 2025-08-14 12:10 | disposition home or self-care (01) ==
LOC: HO.HMCFM 11:19
PROVIDERS: PCP Physician Assistant Medical; Visit Provider Physician Assistant Medical
DX: M48.061 Spinal stenosis, lumbar region without neurogenic claudication (principal); N13.30 Unspecified hydronephrosis; I10 Essential (primary) hypertension; N94.819 Vulvodynia, unspecified; F34.1 Dysthymic disorder; E66.3 Overweight; H61.21 Impacted cerumen, right ear